=== PATIENT | female | born 1945 | race Caucasian/White ===

== ENCOUNTER → 2020-02-21 13:09 | Outpatient (CLI) | payer BC, SELFPAY ==
--- NOTE | ~2020-02-21 | CT_ITS ---
EXAMINATION: CT chest wo con DATE: 02/21/2020 13:33 INDICATION: Coronary nodule TECHNIQUE: Computed tomography (CT) of the chest was performed without intravenous contrast. The dose -length product was 74.60 mGy-cm. Automated exposure control and iterative reconstruction technique w ere employed. COMPARISON: CT dated 02/05/2019, 01/23/2018 and 07/23/2017 no new pulmonary nodules or masses. FINDINGS: No significant pleural or pericardial effusion. Heart size normal. No thoracic lymphadenopa thy. There is atherosclerosis of the aorta without aneurysm. There is apical pleural thickening/scarr ing. 4 mm right lower lobe nodule adjacent to the fissure. 4 mm left upper lobe perifissural nodule, image 24. 4 mm right lower lobe pleural-based nodule, image 74. 8 mm pleural-based left lower lobe no dule, image 80. There are additional smaller nodules in the left lower lobe. Focal airspace consolida tion. IMPRESSION: 1. Stable bilateral pulmonary nodules, likely benign. Twelve-month follow-up low dose CT recommended. Reviewed, dictated and finalized at location [facility]. IMPRESSION: 1. Stable bilateral pulmonary nodules, likely benign. Twelve-month follow-up lo w dose CT recommended.
== END ==
PROVIDERS: PCP Family Medicine; Visit Provider Family Medicine
DX: R91.1 Solitary pulmonary nodule (principal); R91.8 Other nonspecific abnormal finding of lung field
CPT/HCPCS: 71250

== ENCOUNTER → 2021-02-19 10:07 | Outpatient (CLI) | payer BC, SELFPAY ==
--- NOTE | ~2021-02-19 | CT_ITS ---
EXAMINATION: CT diagnostic chest wo con DATE: 02/19/2021 10:26 INDICATION: Pulmonary nodule TECHNIQUE: Computed tomography (CT) of the chest was performed without intravenous contrast. The dose -length product (DLP) was 68.07 mGy-cm. Automated exposure control and iterative reconstruction techn ique were employed. COMPARISON: 02/21/2020, 07/18/2017 FINDINGS: There is mild emphysema. There is a stable 4 mm nodule of the left upper lobe in associatio n with the major fissure on image 22. There is stable 3 mm nodule of the right lower lobe on image 58 . A stable pleural-based nodule is present in the left lower lobe on image 82. No new pulmonary nodul es are identified. The lungs are free of acute opacities. There is no pleural effusion or pneumothora x. No pathologically enlarged thoracic lymph nodes are identified. The heart size is normal. Calcifie d coronary artery atherosclerosis is noted. There is a small sliding hiatal hernia. IMPRESSION: 1. Stable pulmonary nodules, consistent with old granulomatous disease. Given the patient's previousl y described history of tobacco use, annual low-dose lung cancer screening CT would be recommended. Reviewed, dictated and finalized at location [facility]. IMPRESSION: 1. Stable pulmonary nodules, consistent with old granulomatous disease. Given t he patient's previously described history of tobacco use, annual low-dose lung cancer screening CT would be recommended.
== END ==
PROVIDERS: PCP Family Medicine; Visit Provider Family Medicine
DX: R91.8 Other nonspecific abnormal finding of lung field (principal)
CPT/HCPCS: 71250

== ENCOUNTER → 2022-03-25 10:53 | Outpatient (CLI) | payer MEDICARE, OTHER, SELFPAY ==
--- NOTE | ~2022-03-25 | CT_ITS ---
EXAMINATION: CT diagnostic chest wo con DATE: 03/25/2022 11:15 INDICATION: Pulmonary nodules TECHNIQUE: Computed tomography (CT) of the chest was performed without intravenous contrast. Automate d exposure control and iterative reconstruction technique were employed. Exam dose: 68.60 mGy-cm tot al exam DLP. COMPARISON: 02/19/2021 CT chest FINDINGS: Normal heart size. Coronary artery calcifications. Thoracic aortic and great vessel calcifications. No thoracic aortic aneurysm. No hilar or mediastinal mass lesion or lymphadenopathy. Mild emphysematous changes. Stable mild bilateral apical scarring. Stable approximately 4 mm in nodule along the upper aspect of the left greater fissure since 02/20/20 21. Stable 3 mm nodular density, superior segment right lower lobe. A couple of stable pleural based opacities are again noted in the left lower lobe and another in the posterior right lower lobe. No new or enlarging pulmonary mass lesion. No pulmonary infiltrate or consolidation. No pericardial or pleural effusion. Small sliding hiatal hernia. Normal morphology of the adrenal glands. 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 Mild degenerative spurring of the thora cic spine. No suspicious osteolytic or osteoblastic lesions are noted. IMPRESSION: Stable small pulmonary opacities since 02/19/2021; no new or enlarging pulmonary mass le vika Mild emphysema Small sliding hiatal hernia Reviewed, dictated and finalized at [facility]. Reviewed, dictated and finalized at location [facility]. [employer] IMPRESSION: Stable small pulmonary opacities since 02/19/2021; no new or enlar ging pulmonary mass lesion Mild emphysema Small sliding hiatal hernia
== END ==
PROVIDERS: PCP Family Medicine; Visit Provider Family Medicine
DX: R91.1 Solitary pulmonary nodule (principal); K44.9 Diaphragmatic hernia without obstruction or gangrene; J43.9 Emphysema, unspecified; R91.8 Other nonspecific abnormal finding of lung field
CPT/HCPCS: 71250